=== PATIENT | male | born 1950 | race Caucasian/White ===

== ENCOUNTER 2016-09-20 17:08 | Emergency (ER) | payer MEDICARE, OTHER ==
[2016-09-20] MEDS ORDERED: SULFA/TRIMETH 800/160 (DS) TAB 1 EA TAB PO ONE (18:08)
--- NOTE | 2016-09-20 18:10 | ED.PDOC ---
History of Present Illness - General Chief Complaint: Lower Extremity Injury Time Seen by Provider: 09/20/16 17:21 Source: patient Exam Limitations: no limitations - History of Present Illness Initial Comments: the patient is a 65-year-old male presenting to the emergency room secondary to erythema and swelling surrounding his left second toe. The patient is a type II diabetic that is diet controlled currently. The patient was attempting to kick a cricket last night when he kicked the leg of the couch instead. The patient does have an abrasion to the medial aspect of the digit. Cleaning with alcohol shows that this is a superficial breath abrasion and not a puncture through the skin by the bone. X-ray does show that there is a spiral fracture of the shaft of the proximal phalanx of the second toe. Capillary refill of the toe is good. alignment is fair. he does have a chronic decrease in sensation in his feet. No evidence of superimposed infection. No evidence of open fracture. Occurred: yesterday Pain - Lower Extremity: moderate: Left Foot Method of Injury: direct blow Improving Factors: immobilization Worsening Factors: movement Allergies/Adverse Reactions: Allergies NO KNOWN ALLERGY Allergy (Verified 08/26/15 15:27) Home Medications: Ambulatory Orders Amiodarone HCl 200 mg PO BID 08/26/15 Atorvastatin Calcium [Lipitor] 10 mg PO DAILY 08/26/15 Carvedilol 12.5 mg PO BID 08/26/15 Cephalexin [Keflex] 500 mg PO QID #40 cap 08/26/15 Digoxin 0.125 mg PO DAILY 08/26/15 Fenofibrate 145 mg PO DAILY 08/26/15 Folic Acid 1 mg PO DAILY 08/26/15 Gabapentin 300 mg PO DAILY 08/26/15 HYDROcodone 7.5MG/APAP 325MG [Herbster 7.5/325] 1 tab PO Q8H PRN 08/26/15 Levothyroxine Sodium 50 mcg PO DAILY 08/26/15 Metformin HCl 1,000 mg PO BID 08/26/15 Prednisone [Deltasone] 20 mg PO DAILY #10 tab 08/26/15 raNITIdine HCL [Zantac] 150 mg PO BID #30 tab 08/26/15 Clindamycin HCl 300 mg PO Q8H #15 cap 09/20/16 Review of Systems - Review of Systems Constitutional: States: no symptoms reported EENTM: States: no symptoms reported Respiratory: States: no symptoms reported Cardiology: States: no symptoms reported Gastrointestinal/Abdominal: States: no symptoms reported Genitourinary: States: no symptoms reported Musculoskeletal: States: see HPI Skin: States: see HPI Neurological: States: see HPI Endocrine: States: no symptoms reported All other Systems: No Change from Baseline Past Medical History (General) - Patient Medical History Hx Cardiac Disorders: Yes Hx Thyroid Disease: Yes Hx Diabetes: Yes - Vaccination History Hx Tetanus, Diphtheria Vaccination: No Hx Influenza Vaccination: Yes Hx Pneumococcal Vaccination: No - Social History Hx Tobacco Use: No Hx Chewing Tobacco Use: Yes Family Medical History - Family History Father Family History: Unknown Physical Exam - Physical Exam General Appearance: Alert, Comfortable, No apparent distress Eyes, Ears, Nose, Throat: PERRL/EOMI Neck: full range of motion Cardiovascular/Respiratory: normal peripheral pulses, no respiratory distress Thigh/Hip: normal inspection, non-tender, no evidence of injury, normal ROM Leg: normal inspection, non-tender, no evidence of injury, normal ROM Knee: normal inspection, non-tender, no evidence of injury, normal ROM Ankle: normal inspection, non-tender, no evidence of injury, normal ROM Foot: other - there is significant erythema and bruising surrounding the second toe and base of the second toe. There is swelling. There is pain. There is a superficial abrasion to the medial aspect of the toe. No evidence of this laceration tracking down to the fracture site however. This appears to be a superficial abrasion only. There is bony crepitus. He can feel me touching the toe but sensation is slightly decreased from baseline. Neuro/Tendon: responds to pain Mental Status: alert, oriented x 3 Skin: normal color - with the exception as stated above Progress - Progress Progress: 09/20/16 18:12 the patient is a 65-year-old male presenting to the emergency room secondary to spiral fracture of the proximal phalanx of the left foot second toe. The patient is a diabetic and thus is going to be placed on clindamycin for the next 5 days. He does have an abrasion to the second toe that does need to be followed. No evidence of infection at this time. This does not appear to be an open fracture. The second digit is abdias taped to the first digit for best reduction given the angle of the spiral fracture as well as given the fact that the third digit is essentially a hammertoe. the patient is to use a hard sole shoe to prevent movement of the fracture site. He was instructed on how to abdias tape the digits to allow for immobilization. ER warnings are given for any worsening. He does need follow up with his primary care doctor towards the end of this week to make sure that it appears to be healing well. He will need x-rays in a few weeks to make sure that the bony callus is forming adequately. 09/20/16 18:17 Departure - Departure Clinical Impression: Fracture, toe Qualifiers: Encounter type: initial encounter Toe: unspecified toe Fracture type: closed Fracture alignment: displaced Laterality: left Qualified Code(s): S92.912A - Unspecified fracture of left toe(s), initial encounter for closed fracture Disposition: Discharge to Home or Self Care Condition: Fair Departure Forms: ED Discharge - Pt. Copy, Patient Portal Self Enrollment Instructions: DI for Toe Fracture Diet: diabetic diet Activity: no pushing/pulling with affected limb Referrals: ASHU RIVAS [Primary Care Provider] - 1-2 Weeks Prescriptions: Clindamycin HCl 300 mg PO Q8H #15 cap Home Medications: Ambulatory Orders Amiodarone HCl 200 mg PO BID 08/26/15 Atorvastatin Calcium [Lipitor] 10 mg PO DAILY 08/26/15 Carvedilol 12.5 mg PO BID 08/26/15 Cephalexin [Keflex] 500 mg PO QID #40 cap 08/26/15 Digoxin 0.125 mg PO DAILY 08/26/15 Fenofibrate 145 mg PO DAILY 08/26/15 Folic Acid 1 mg PO DAILY 08/26/15 Gabapentin 300 mg PO DAILY 08/26/15 HYDROcodone 7.5MG/APAP 325MG [Herbster 7.5/325] 1 tab PO Q8H PRN 08/26/15 Levothyroxine Sodium 50 mcg PO DAILY 08/26/15 Metformin HCl 1,000 mg PO BID 08/26/15 Prednisone [Deltasone] 20 mg PO DAILY #10 tab 08/26/15 raNITIdine HCL [Zantac] 150 mg PO BID #30 tab 08/26/15 Clindamycin HCl 300 mg PO Q8H #15 cap 09/20/16 Additional Instructions: the patient is a 65-year-old male presenting to the emergency room secondary to spiral fracture of the proximal phalanx of the left foot second toe. The patient is a diabetic and thus is going to be placed on clindamycin for the next 5 days. He does have an abrasion to the second toe that does need to be followed. No evidence of infection at this time. This does not appear to be an open fracture. The second digit is abdias taped to the first digit for best reduction given the angle of the spiral fracture as well as given the fact that the third digit is essentially a hammertoe. the patient is to use a hard sole shoe to prevent movement of the fracture site. He was instructed on how to abdias tape the digits to allow for immobilization. ER warnings are given for any worsening. He does need follow up with his primary care doctor towards the end of this week to make sure that it appears to be healing well. He will need x-rays in a few weeks to make sure that the bony callus is forming adequately.
[2016-09-20 18:47] VITALS: TEMP 98; O2SAT 97
== END 2016-09-20 18:30 | disposition home or self-care (01) ==
LOC: ER 17:08
DX: S92.912A Unspecified fracture of left toe(s), initial encounter for closed fracture (principal); E11.9 Type 2 diabetes mellitus without complications; E03.9 Hypothyroidism, unspecified; Z79.899 Other long term (current) drug therapy; W22.03XA Walked into furniture, initial encounter

== ENCOUNTER → 2019-02-17 | Outpatient (CLI) | payer MEDICARE, OTHER | LOC: LAB.O 13:10 | PROVIDERS: ATTEND Family Medicine | DX: D72.828 Other elevated white blood cell count (principal) ==

== ENCOUNTER 2019-09-29 15:21 | Emergency (ER) | payer MEDICARE, OTHER ==
[2019-09-29 15:38] VITALS: TEMP 96.3
[2019-09-29] MEDS ORDERED: SODIUM CHLORIDE 0.9% (FLUSH) 10 ML SYG IV PRN (15:38)
[2019-09-29] MEDS ORDERED: SODIUM CHLORIDE 0.9% 1000ML 1,000 ML IVS ONE (15:42)
[2019-09-29] MEDS ORDERED: NOREPINEPHRINE BITARTRATE 4 MG/4 ML VIAL IVPB ONE (15:48)
[2019-09-29] MEDS ORDERED: DEXTROSE 5% 250ML 250 ML ONE (15:48)
[2019-09-29] MEDS ORDERED: NOREPINEPHRINE BITARTRATE 4 MG in DEXTROSE 5% 250ML 250 ML IVPB SCH (16:00)
--- NOTE | 2019-09-29 16:10 | RAD ---
Portable chest one view INDICATION: Hypotension altered mental status IMPRESSION: Marked increase heart size compared to July 31, 2013. Vascular congestion. Possible mild interstitial edema suspect a degree of CHF . Limited left base consider upright PA and lateral films when possible cannot exclude left basilar infiltrate or atelectasis. No pneumothorax. Old left upper rib fractures. Dual-lead pacemaker/AICD. Electronically signed by: Jorge Luis Cheatham MD 09/29/2019 4:08 PM CDT
[2019-09-29 16:46] VITALS: BP 78/61; O2SAT 97
--- NOTE | 2019-09-29 23:33 | ED.PDOC ---
History of Present Illness - General Chief Complaint: Respiratory Problem Stated Complaint: shortness of breath Time Seen by Provider: 09/29/19 15:32 Source: patient, EMS Exam Limitations: clinical condition - PT IS INAUDIBLY ANSWERING QUESTIONS. HE C/O SOB. - History of Present Illness Initial Comments: EMS WAS CALLED BY FAMILY MEMBER TODAY FOR SOB AND AMS WHICH STARTED LAST NIGHT OR LONGER. PER FAMILY, PT HADN'T LEFT THE HOUSE IN OVER 2 WEEKS DUE TO COVID LOCKDOWN. EMS NOTED PT WAS 86 SYSTOLILC BP,THUS THEY STARTED NS BOLUS. BP UPON ER ARRIVAL 61/49. EMS NOTED PT SATS AROUND 70 IN THE FIELD, INCREASED UP TO 96% ON 6L NC. PT DENIES C/O OTHER THAN SOB. HE IS NOT ANSWERING QUESTIONS WELL IN ER DUE TO AMS, LIKELY FROM HOTN. STARTED 2ND LINE IN ER (BL PERIPHERAL IV'S) AND STARTED 1L NS BOLUS IN EACH ARM. PT PALE, DIAPHORETIC. I AM CONCERNED ABOUT AZ, PE, PNE, ETC, THUS STARTING EXTENSIVE WORKUP WITHOUT DELAYING TRANSFER HE IS IN NEED OF ICU. Severity: severe Improving Factors: nothing Worsening Factors: nothing Associated Symptoms: shortness of breath Allergies/Adverse Reactions: Allergies NO KNOWN ALLERGY Allergy (Verified 08/26/15 15:27) Home Medications: Ambulatory Orders Amiodarone HCl 200 mg PO BID 08/26/15 Atorvastatin Calcium [Lipitor] 10 mg PO DAILY 08/26/15 Carvedilol 12.5 mg PO BID 08/26/15 Cephalexin [Keflex] 500 mg PO QID #40 cap 08/26/15 Digoxin 0.125 mg PO DAILY 08/26/15 Fenofibrate 145 mg PO DAILY 08/26/15 Folic Acid 1 mg PO DAILY 08/26/15 Gabapentin 300 mg PO DAILY 08/26/15 HYDROcodone 7.5MG/APAP 325MG [Williams 7.5/325] 1 tab PO Q8H PRN 08/26/15 Levothyroxine Sodium 50 mcg PO DAILY 08/26/15 Metformin HCl [Metformin Hydrochloride] 1,000 mg PO BID 08/26/15 Prednisone [Deltasone] 20 mg PO DAILY #10 tab 08/26/15 raNITIdine HCL [Zantac] 150 mg PO BID #30 tab 08/26/15 Clindamycin HCl 300 mg PO Q8H #15 cap 09/20/16 Review of Systems - Review of Systems Constitutional: States: diaphoresis, weakness EENTM: States: no symptoms reported Respiratory: States: short of breath Cardiology: Denies: chest pain Gastrointestinal/Abdominal: Denies: abdominal pain Genitourinary: States: no symptoms reported Musculoskeletal: States: no symptoms reported Skin: States: no symptoms reported Neurological: States: no symptoms reported Endocrine: States: no symptoms reported Hematologic/Lymphatic: States: no symptoms reported Unable to Obtain Due To: clinical condition - AMS AND DYSPNEA Past Medical History (General) - Patient Medical History Hx Stroke: No Hx Cardiac Disorders: Yes Hx Congestive Heart Failure: No Hx Pacemaker: Yes Hx Thyroid Disease: Yes Hx Diabetes: Yes Surgical History: pacemaker - Vaccination History Hx Tetanus, Diphtheria Vaccination: No Hx Influenza Vaccination: Yes Hx Pneumococcal Vaccination: Yes - Social History Hx Tobacco Use: No Hx Chewing Tobacco Use: Yes Family Medical History - Family History Father Family History: Unknown Living Status: Physical Exam - Physical Exam General Appearance: Obvious distress, Ill Appearing Eye Exam: bilateral normal Ears, Nose, Throat: normal ENT inspection, normal pharynx Neck: full range of motion, supple Respiratory: respiratory distress, decreased breath sounds, accessory muscle use Cardiovascular/Chest: no JVD Peripheral Pulses: radial,right: 1+, radial,left: 1+ Gastrointestinal/Abdominal: non tender, no organomegaly Extremity: normal range of motion, no pedal edema, no calf tenderness Neurologic: no motor/sensory deficits, other - GCS 15. Skin Exam: diaphoresis, pallor Progress - Results/Orders Results/Orders: HYPOTENSION OF UNCLEAR ETX AND DURATION, PT WAS SELF ISOLATED AT HOME (BY STATE LAW FOR [employer] CRISIS) FOR AT LEAST 2 WEEKS, WHICH EXACERBATES THE PATIENT'S CLINICAL CONDITION. CXR SHOWS CHF (BUT NO PNEUMONIA) AND BNP MILDLY ELEV AT 170, BUT THE PATIENT IS HYPOTENSIVE, THUS BOLUSING 2L NS THROUGH BL IV'S. I STARTED LEVOPHED WELL TO SUPPORT ORGAN PERFUSION SINCE BP CRITICALLY LOW. ABG SHOWS METABOLIC ACIDOSIS. AMS LIKELY DUE TO HYPOTENSION AND HYPONATREMIA. COVID SWAB PENDING. EKG SHOWED ST ELEVATION IN LEADS 2, 3, AVF, BUT PER CONSULT WITH DR. SANDERSON, CARDIOLOGY IN [place], HE CONFIRMED THAT AZ CANNOT BE DIAGNOSED ON EKG ON A VENTRICULARLY PACED RHYTHM. CARDIAC ENZYMES WERE NEG FOR AZ. CBC SHOWS ANEMIA. NO LEUKOCYTOSIS. MILD D-DIMER ELEVATION AT 749, THUS POSSIBLE P.E. CAUSE OF HYPOTENSION, HOWEVER PT WAS NOT TACHYCARDIC, HYPOXIC WITH 3L NC, NOR TACHYPNEIC, THUS MAKING P.E. A LESS LIKELY ETIOLOGY. BMP - SODIUM LOW AT 118. POTASSIUM ELEVATED AT 7.1 BUN AND CR ELEV, C/W CHRONIC RENAL FAILURE. COAGS - INR ELEVATED AT 1.96 PATIENT'S BP INCREASED TO 78/61 AND FULL TREATMENT FOR THE BLOOD PRESSURE WAS BEING ADMINISTERED WITH BL IV BOLUSES AND LEVOPHED DRIP. THE PATIENT'S GREATEST NEED WAS FOR ICU CARE, WHICH WE DO NOT HAVE AT [facility], THUS THE PATIENT WAS TRANSFERRED VIA [facility] TO [facility]. AT TIME IF DISCHARGE, HE WAS 97% ON JUST 3L NC, RESPIRATORY RATE 20, AND PULSE 75, THUS INTUBATION PRIOR TO TRANSFER WAS NOT INDICATED, DUE TO THE INHERENT RISKS OF DECOMPENSATING DIRECTLY AFTER INTUBATION. THANK YOU, DR. DEL REAL, AND [facility], FOR ACCEPTING FURTHER CARE OF OUR MUTUAL PATIENT. CRITICAL CARE TIME IN ER 1 HOUR 25 MINUTES. (NOTE: DISREGARD THE CT ORDERED AT 00:29. IT WAS ERRONEOUSLY ORDERED ON THIS PT BUT MEANT FOR DIFFERENT ER PT.) Departure - Departure Clinical Impression: Severe hypotension, Hypoxia, Pacemaker, Metabolic acidosis, Hyperkalemia, Hyponatremia, Elevated d-dimer, Elevated INR Dyspnea Qualifiers: Dyspnea type: shortness of breath Qualified Code(s): R06.02 - Shortness of breath; R06.00 - Dyspnea, unspecified; R06.01 - Orthopnea Altered mental state Qualifiers: Altered mental status type: delirium Qualified Code(s): R41.0 - Disorientation, unspecified CHF (congestive heart failure) Qualifiers: Heart failure type: unspecified Heart failure chronicity: chronic Qualified Code(s): I50.9 - Heart failure, unspecified Anemia Qualifiers: Anemia type: other cause Other causes of anemia: other cause, not classified Qualified Code(s): D64.89 - Other specified anemias Chronic renal failure Qualifiers: Chronic kidney disease stage: unspecified stage Qualified Code(s): N18.9 - Chronic kidney disease, unspecified Disposition: Transfer to Hospital Condition: Poor Referrals: ASHU RIVAS [Primary Care Provider] - 1-2 Weeks Home Medications: Ambulatory Orders Amiodarone HCl 200 mg PO BID 08/26/15 Atorvastatin Calcium [Lipitor] 10 mg PO DAILY 08/26/15 Carvedilol 12.5 mg PO BID 08/26/15 Cephalexin [Keflex] 500 mg PO QID #40 cap 08/26/15 Digoxin 0.125 mg PO DAILY 08/26/15 Fenofibrate 145 mg PO DAILY 08/26/15 Folic Acid 1 mg PO DAILY 08/26/15 Gabapentin 300 mg PO DAILY 08/26/15 HYDROcodone 7.5MG/APAP 325MG [Williams 7.5/325] 1 tab PO Q8H PRN 08/26/15 Levothyroxine Sodium 50 mcg PO DAILY 08/26/15 Metformin HCl [Metformin Hydrochloride] 1,000 mg PO BID 08/26/15 Prednisone [Deltasone] 20 mg PO DAILY #10 tab 08/26/15 raNITIdine HCL [Zantac] 150 mg PO BID #30 tab 08/26/15 Clindamycin HCl 300 mg PO Q8H #15 cap 09/20/16 Critical Care Note - Critical Care Note Total Time (mins): 75 Transfer to Outside Facility - Transfer Information Decision to Transfer Date: 09/29/19 Decision to Transfer Time: 16:45 Reason for Transfer: ICU Accepting Provider:: DR. DEL REAL Accepting Facility: [facility]
== END 2019-09-29 16:46 | disposition short-term general hospital (02) ==
LOC: ER 15:21
DX: I95.9 Hypotension, unspecified (principal); R09.02 Hypoxemia; R06.02 Shortness of breath; R06.01 Orthopnea; R41.0 Disorientation, unspecified; D64.89 Other specified anemias; N18.9 Chronic kidney disease, unspecified; E87.1 Hypo-osmolality and hyponatremia; E87.2 Acidosis; E11.9 Type 2 diabetes mellitus without complications; E87.5 Hyperkalemia; I50.9 Heart failure, unspecified; Z95.0 Presence of cardiac pacemaker; Z79.899 Other long term (current) drug therapy
CPT/HCPCS: 36600; 71045; 80048; 82550; 82553; 82803; 83880; 84484; 85025; 85379; 85610; 85730; 93005; J7030; J7060; U0002